=== PATIENT | female | born 1980 | race Caucasian/White ===

== ENCOUNTER 2019-02-12 11:38 | Emergency (ER) | payer BC ==
[2019-02-12] MEDS: DIPHENHYDRAMINE 50 MG INJ IV (12:42)
[2019-02-12] MEDS: METOCLOPRAMIDE 10 MG INJ IV (12:42)
[2019-02-12] MEDS: KETOROLAC 15 MG INJ IV (12:42)
[2019-02-12] MEDS: SOD CHLORIDE 0.9% 1,000 ML IV (12:42)
== END 2019-02-12 15:00 | disposition home or self-care (01) ==
LOC: E/R 11:38
DX: R51 Headache (principal); R20.2 Paresthesia of skin; R55 Syncope and collapse; Z79.84 Long term (current) use of oral hypoglycemic drugs
CPT/HCPCS: 81025; 96374; 96375; 99284-25